=== PATIENT | female | born 1945 ===

== ENCOUNTER → 2024-04-28 | Outpatient (CLI) | payer SELFPAY ==
[2024-04-28 11:20] LABS: Source, Urine Clean Catch
[2024-04-28 12:22] LABS: Appearance, Urine Hazy (Clear); Bilirubin, Urine Neg (Neg); Blood, Urine 1+ (Neg); Color, Urine Yellow (P-Yellow); Glucose Qualitative, Urine Neg (Neg); Ketones, Urine Neg (Neg); Leukocyte Esterase, Urine 3+ (Neg); Nitrite, Urine Neg (Neg); Protein, Urine Neg (Neg); Urobilinogen, Urine NORM (Normal)
[2024-04-28 12:48] LABS: White Blood Cells, Urine TNTC /hpf (0-5)
[2024-04-28 12:49] LABS: Bacteria Many /hpf; Renal Epithelial Few /hpf (0-Rare); Squamous Epithelial Cells Mod /hpf (Few); Transitional Epithelial Cells Few /hpf (0-Rare)
== END | disposition home or self-care (01) ==
LOC: LAB SHORT 11:18 → LAB 11:18
PROVIDERS: Nurse Practitioner Family
DX: N39.0 Urinary tract infection, site not specified (principal)
CPT/HCPCS: 81001; 87077; 87086; 87186

== ENCOUNTER → 2024-09-16 | Outpatient (CLI) | payer SELFPAY ==
[2024-09-16 17:16] LABS: Bilirubin, Urine Neg (Neg); Color, Urine Yellow (P-Yellow); Glucose Qualitative, Urine Neg (Neg); Ketones, Urine Neg (Neg); Leukocyte Esterase, Urine 1+ (Neg); Protein, Urine 1+ (Neg); Specific Gravity, Urine 1.020 (1.003-1.022); Urobilinogen, Urine NORM (Normal)
[2024-09-16 17:23] LABS: Red Blood Cells, Urine 0-2 /hpf (0-2)
== END | disposition home or self-care (01) ==
LOC: LAB SHORT 17:10 → LAB 17:10
PROVIDERS: Nurse Practitioner Family
DX: N39.0 Urinary tract infection, site not specified (principal)
CPT/HCPCS: 81001; 87086

== ENCOUNTER → 2024-12-23 | Outpatient (CLI) | payer SELFPAY ==
[2024-12-23 09:39] LABS: Source, Urine Clean Catch
[2024-12-23 10:56] LABS: Bilirubin, Urine Neg (Neg); Glucose Qualitative, Urine Neg (Neg); Ketones, Urine Neg (Neg); Leukocyte Esterase, Urine 3+ (Neg); Protein, Urine 1+ (Neg); Specific Gravity, Urine 1.015 (1.003-1.022); Urobilinogen, Urine NORM (Normal)
[2024-12-23 11:10] LABS: Color, Urine Pale Yellow (P-Yellow)
[2024-12-23 11:15] LABS: Red Blood Cells, Urine 0-2 /hpf (0-2)
== END ==
LOC: LAB 07:40 → LAB SHORT 07:40
PROVIDERS: Nurse Practitioner Family
DX: N39.0 Urinary tract infection, site not specified (principal)
CPT/HCPCS: 81001; 87077; 87086; 87186